=== PATIENT | female | born 1970 ===

== ENCOUNTER 2020-12-10 12:14 | Emergency (ER) | payer SELFPAY ==
--- NOTE | 2020-12-10 13:14 | Emergency Department Report ---
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 She states that she noticed it about a month ago. She reports soreness to the area but no significant pain. She reports swelling to the right breast. She denies any apparent redness or bruising or warmth to the area. She denies any nipple discharge or dimpling to the breast. She states that she had a mammogram about 2 years ago in [place] and at that time was normal. She denies any family history of breast cancer. She reports no additional symptoms at this time. MD Complaint: Right breast lump -: month(s) (1) - Related Data Allergies Allergy/AdvReac Type Severity Reaction Status Date / Time No Known Allergies Allergy Unverified 12/10/20 12:48 ED Review of Systems ROS: Stated complaint: PAIN IN RT BREAST Other details as noted in HPI Comment: All other systems reviewed and negative Constitutional: denies: chills, fever Eyes: denies: eye pain, eye discharge, vision change ENT: denies: ear pain, throat pain Respiratory: denies: cough, shortness of breath, SOB with exertion, SOB at rest, wheezing Gastrointestinal: denies: abdominal pain, nausea, diarrhea Genitourinary: denies: urgency, dysuria, discharge Skin: other (Right breast mass). denies: rash, lesions, change in color, change in hair/nails, pruritus Neurological: denies: headache, weakness, paresthesias, confusion, abnormal gait, vertigo Psychiatric: denies: anxiety, depression Hematological/Lymphatic: denies: easy bleeding, easy bruising ED Past Medical Hx - Past Medical History Previous Medical History?: No - Surgical History Past Surgical History?: No ED Physical Exam - General Limitations: Language Barrier General appearance: alert, in no apparent distress - Head Head exam: Present: atraumatic, normocephalic, normal inspection - Eye Eye exam: Present: normal appearance, PERRL, EOMI Pupils: Present: normal accommodation - Neck Neck exam: Present: normal inspection, full ROM - Respiratory Respiratory exam: Absent: respiratory distress - Cardiovascular Cardiovascular Exam: Present: regular rate - Neurological Exam Neurological exam: Present: alert, oriented X3, CN II-XII intact, normal gait - Skin Skin exam: Present: other (Patient has a palpable lump noted about 9:00 of the right breast without any associated cellulitis, no nipple discharge or dimpling noted) ED Course Vital Signs 12/10/20 12:51 Temperature 98.7 F Pulse Rate 84 Respiratory 20 Rate Blood Pressure 140/80 O2 Sat by Pulse 97 Oximetry ED Medical Decision Making - Medical Decision Making Patient has a palpable lump noted to the lateral aspect of the right breast. No apparent signs of abscess or infection on exam. No nipple discharge or skin dimpling noted. Informed patient that she will need to follow-up with [facility] for outpatient mammogram to rule out cause of the lump including ruling out malignancy. Patient states that she does not have an [facility] and therefore she will be given a few referrals to local [facility]. Patient expressed understanding of the importance of follow-up with OB. Patient not toxic, not ill-appearing and not in any significant distress. Patient was stable at time of discharge Critical care attestation.: If time is entered above; I have spent that time in minutes in the direct care of this critically ill patient, excluding procedure time. ED Disposition Clinical Impression: Breast mass, right Disposition: 01 HOME / SELF CARE / HOMELESS Is pt being admited?: No Does the pt Need Aspirin: No Condition: Stable Instructions: Breast Self-Awareness, [id number], Breast Tenderness, Mammogram Additional Instructions: It is very important that you follow-up with one of the [facility] clinics listed on your discharge instructions to set up an appointment for outpatient mammogram to determine the cause of this masslike structure in your right breast. You can take Tylenol and ibuprofen if there is any pain. Return to the ER if your symptoms changes or worsens in any way Referrals: [facility] [Provider Group] - 3-5 Days [facility] [Provider Group] - 3-5 Days RL FINE MD [Staff Physician] - 3-5 Days Time of Disposition: 13:13 Print Language: [place]
[2020-12-10 14:01] VITALS: BP 122/74
== END 2020-12-10 14:00 | disposition home or self-care (01) ==
LOC: ED 12:14
DX: N63.0 Unspecified lump in unspecified breast (principal)
CPT/HCPCS: 99282